=== PATIENT | male | born 1980 | race Caucasian/White ===

== ENCOUNTER 2017-01-21 23:21 | Inpatient (IN) | payer MEDICAID ==
[~2017-01-21] VITALS: Ht 195.6 cm; Wt 128.3 kg
[2017-01-21] MEDS ORDERED: SODIUM CHLORIDE 0.9% 1,000 ML IV ONE (23:35)
[2017-01-22] MEDS ORDERED: SODIUM CHLORIDE FLUSH 10ML SYR IVF ONE
[2017-01-22] MEDS ORDERED: SODIUM CHLORIDE 0.9% 1,000ML IVBOLUS ONE
[2017-01-22] MEDS ORDERED: ACETYLCYSTEINE 20%, 30ML PO ONE
[2017-01-22 00:16] LABS: ASPARTATE AMINO TRANSFERASE 12 U/L (15-37); BLOOD UREA NITROGEN 15 mg/dL (7-18)
[2017-01-22 00:33] LABS: ACETAMINOPHEN 292 mcg/mL (10-30)
[2017-01-22] MEDS ORDERED: METOCLOPRAMIDE 5 MG/ML, 2ML ONE (00:39)
[2017-01-22] MEDS ORDERED: METOCLOPRAMIDE 5 MG/ML, 2ML IVPush ONE (01:00)
[2017-01-22] MEDS ORDERED: ONDANSETRON 2MG/ML, 2ML IVPush PRN (01:00)
[2017-01-22] MEDS ORDERED: METOCLOPRAMIDE 5 MG/ML, 2ML IVPush PRN (01:00)
[2017-01-22] MEDS ORDERED: ACETYLCYSTEINE 15,000 MG in DEXTROSE 5% 200 ML IV ONE (01:00)
[2017-01-22 02:00] VITALS: BP 107/70
[2017-01-22] MEDS: HEPARIN 5,000 UNITS/ML, 1ML SQ SCH ×3 (02:15→21:33)
[2017-01-22 03:44] VITALS: BP 107/70
[2017-01-22 03:54] LABS: DAU SCREEN DISCLAIMER
[2017-01-22] MEDS ORDERED: ACETYLCYSTEINE 5,000 MG in DEXTROSE 5% 500 ML IV ONE (04:00)
[2017-01-22] MEDS: SODIUM CHLORIDE 0.9% 1,000 ML IV SCH ×3 (04:58→21:33)
[2017-01-22 05:17] LABS: ASPARTATE AMINO TRANSFERASE 9 U/L (15-37); BLOOD UREA NITROGEN 13 mg/dL (7-18)
[2017-01-22 05:21] LABS: ACETAMINOPHEN 186 mcg/mL (10-30)
[2017-01-22 07:11] VITALS: BP 123/72
[2017-01-22] MEDS ORDERED: ACETYLCYSTEINE 10,000 MG in DEXTROSE 5% 1,000 ML IV ONE (08:00)
[2017-01-22 10:43] LABS: ASPARTATE AMINO TRANSFERASE 14 U/L (15-37); BLOOD UREA NITROGEN 13 mg/dL (7-18)
[2017-01-22 10:45] LABS: ACETAMINOPHEN 38 mcg/mL (10-30)
[2017-01-22 12:11] VITALS: BP 121/75
[2017-01-22 20:00] VITALS: BP 128/74
[2017-01-23 02:00] VITALS: BP 113/69
[2017-01-23] MEDS: HEPARIN 5,000 UNITS/ML, 1ML SQ SCH ×3 (05:56→22:38)
[2017-01-23] MEDS: SODIUM CHLORIDE 0.9% 1,000 ML IV SCH (05:56)
[2017-01-23 06:31] LABS: ASPARTATE AMINO TRANSFERASE 9 U/L (15-37); BLOOD UREA NITROGEN 12 mg/dL (7-18)
[2017-01-23 07:37] VITALS: BP 123/77
[2017-01-23 13:05] VITALS: BP 139/79
[2017-01-23 20:00] VITALS: BP 126/76
[2017-01-24 02:00] VITALS: BP 100/62
[2017-01-24 04:52] LABS: BLOOD UREA NITROGEN 12 mg/dL (7-18)
[2017-01-24 04:56] LABS: ASPARTATE AMINO TRANSFERASE 8 U/L (15-37)
[2017-01-24] MEDS: HEPARIN 5,000 UNITS/ML, 1ML SQ SCH (05:38)
[2017-01-24 07:15] VITALS: BP 115/75
[2017-01-24] MEDS: ARIPIPRAZOLE 2 MG TABLET PO SCH (09:21)
[2017-01-24] MEDS: SERTRALINE 50MG TABLET PO SCH (09:21)
[2017-01-24] MEDS ORDERED: ONDANSETRON ODT 4 MG PO PRN (10:30)
[2017-01-24 12:34] VITALS: BP 132/85
[2017-01-24 18:27] VITALS: BP 125/75
[2017-01-24 20:35] VITALS: BP 133/80
[2017-01-25 07:08] VITALS: BP 119/77
[2017-01-25] MEDS: ARIPIPRAZOLE 2 MG TABLET PO SCH (08:06)
[2017-01-25] MEDS: SERTRALINE 50MG TABLET PO SCH (08:06)
[2017-01-25] MEDS: THIAMINE 100MG TABLET PO SCH (09:30)
[2017-01-25] MEDS: FOLIC ACID 1 MG TABLET PO SCH (09:30)
[2017-01-25 19:40] VITALS: BP 125/79
[2017-01-25] MEDS: TRAZODONE 100MG TABLET PO SCH (21:25)
[2017-01-26 07:09] VITALS: BP 122/78
[2017-01-26] MEDS ORDERED: SERTRALINE 100MG TABLET ONE (08:46)
[2017-01-26] MEDS: ARIPIPRAZOLE 2 MG TABLET PO SCH (08:52)
[2017-01-26] MEDS: FOLIC ACID 1 MG TABLET PO SCH (08:53)
[2017-01-26] MEDS: MULTIVITAMIN 1 TABLET PO SCH (08:53)
[2017-01-26] MEDS: SERTRALINE 50MG TABLET PO SCH (08:53)
[2017-01-26] MEDS: THIAMINE 100MG TABLET PO SCH (08:53)
[2017-01-26 19:34] VITALS: BP 117/69
[2017-01-26] MEDS: TRAZODONE 100MG TABLET PO SCH (21:11)
[2017-01-27 08:00] VITALS: BP 123/80
[2017-01-27] MEDS: SERTRALINE 50MG TABLET PO SCH (09:37)
[2017-01-27] MEDS: MULTIVITAMIN 1 TABLET PO SCH (09:37)
[2017-01-27] MEDS: FOLIC ACID 1 MG TABLET PO SCH (09:37)
[2017-01-27] MEDS: ARIPIPRAZOLE 2 MG TABLET PO SCH (09:37)
[2017-01-27] MEDS: THIAMINE 100MG TABLET PO SCH (09:37)
[2017-01-28] MEDS ORDERED: SERTRALINE 50MG TABLET PO SCH (09:00)
== END 2017-01-27 15:40 | DRG 918 ==
LOC: ED 23:59 → EDIP 01-22 00:41 → SUATTDRO 01-22 00:58 → 4WST 01-22 01:47 → 3E 01-24 18:00
PROVIDERS: ADMIT Internal Medicine; ATTEND Internal Medicine
DX: T39.1X2A Poisoning by 4-Aminophenol derivatives, intentional self-harm, initial encounter (principal); F33.2 Major depressive disorder, recurrent severe without psychotic features; D72.829 Elevated white blood cell count, unspecified; F10.20 Alcohol dependence, uncomplicated; Z88.0 Allergy status to penicillin; Z59.0 Homelessness; Z91.5 Personal history of self-harm
CPT/HCPCS: 36415; 80053; 80307; 80329; 85025; 85384; 85610; 85670; 85730; 96361; 96374; J0132; J1644; J2405; J7060; J7070; J7608; G0480; J2765; J7030